=== PATIENT | female | born 1995 | race Caucasian/White ===

== ENCOUNTER 2017-06-05 07:04 | Emergency (ER) | payer OTHER ==
[~2017-06-05] VITALS: Ht 167.6 cm; Wt 68.6 kg
[2017-06-05] MEDS ORDERED: VENTOLIN HFA18 GM IH (09:40)
[2017-06-05] MEDS ORDERED: MEDROL DOSEPAK4 MG PO (09:40)
[2017-06-05 11:10] VITALS: BP 123/77
== END 2017-06-05 11:11 | disposition home or self-care (01) ==
LOC: EME 07:04
DX: R13.10 Dysphagia, unspecified (principal); J02.9 Acute pharyngitis, unspecified
CPT/HCPCS: 87651 90; 94640; 99281; 99284